=== PATIENT | male | born 1965 ===

== ENCOUNTER 2016-11-19 11:50 | Emergency (ER) | payer SELFPAY ==
[2016-11-19 12:33] VITALS: BP 116/78
--- NOTE | 2016-11-19 13:07 | RAD ---
INDICATION: Left ankle injury. TECHNIQUE: 3 views of the left ankle were obtained. FINDINGS: There is soft tissue swelling present along the anterolateral aspect of the ankle. No acute fracture is seen. There are several small well-defined calcific densities adjacent to the tip of the medial malleolus most consistent with old fracture fragments. IMPRESSION: SOFT TISSUE SWELLING, NO ACUTE FRACTURE IS SEEN.
--- NOTE | 2016-11-19 13:31 | UC ---
Lower Extremity/Ankle HPI - HPI Summary HPI Summary: complaint of left ankle pain that started 2 weeks ago when he stepped into a hole and turned his ankle outward this morning he rolled his ankle outward while walking his dog and heard a loud pop aching pain when he puts weight on his left foot that radiates into his lower leg took some ibuprofen with some relief this morning - History of Current Complaint Chief Complaint: UCLowerExtremity Stated Complaint: ANKLE INJURY Time Seen by Provider: 11/19/16 13:16 Hx Obtained From: Patient Aggravating Factor(s): Ambulation Alleviating Factor(s): Rest, Ice Able to Bear Weight: Yes - Allergies/Home Medications Allergies/Adverse Reactions: Allergies Allergy/AdvReac Type Severity Reaction Status Date / Time No Known Allergies Allergy Verified 11/19/16 12:33 PMH/Surg Hx/FS Hx/Imm Hx Previously Healthy: Yes - Surgical History Surgical History: None - Family History Known Family History: Positive: Diabetes Negative: Cardiac Disease, Hypertension Family History: father - Social History Occupation: Employed Full-time Lives: With Family Alcohol Use: None Substance Use Type: None Smoking Status (MU): Current Every Day Smoker Cessation Counseling: Patient Advised to Stop Review of Systems Constitutional: Negative Skin: Negative Eyes: Negative ENT: Negative Respiratory: Negative Cardiovascular: Negative Gastrointestinal: Negative Genitourinary: Negative Motor: Negative Neurovascular: Negative Musculoskeletal: Other: - left ankle pain Neurological: Negative Psychological: Negative All Other Systems Reviewed And Are Negative: Yes Physical Exam Triage Information Reviewed: Yes Appearance: Well-Appearing, Well-Nourished Vital Signs: Initial Vital Signs Temp 97.8 F 11/19/16 12:29 Pulse 60 11/19/16 12:29 Resp 16 11/19/16 12:29 BP 116/78 11/19/16 12:29 Pulse Ox 100 11/19/16 12:29 Vital Signs Reviewed: Yes Eyes: Positive: Conjunctiva Clear ENT: Positive: Pharynx normal, TMs normal Dental: Positive: Gross Decay/Caries @ Neck: Positive: No Lymphadenopathy Respiratory: Positive: Lungs clear, Normal breath sounds, No respiratory distress, No accessory muscle use Cardiovascular: Positive: RRR, No Murmur, Pulses Normal Abdomen Description: Positive: Nontender, Soft Bowel Sounds: Positive: Present Musculoskeletal: Positive: Other: - LLE-No bony deformities, tenderness and edema lateral side of ankle Full ROM dorsi/plantar flexion, inversion & eversion. Bailey test negative.no step off in achilles tendon Neurological: Positive: Alert Psychological Exam: Normal Skin Exam: Normal Lower Extremity Course/Dx - Course Course Of Treatment: exam completed. x-ray shows no acute fractures. will send to ortho for further evasluation d/t concern about achilles tendon injury - Differential Dx/Diagnosis Differential Diagnosis/HQI/PQRI: Fracture (Closed), Sprain, Strain, Other - achilles tendon injury Provider Diagnoses: left ankle sprain Discharge - Discharge Plan Condition: Stable Disposition: HOME Patient Education Materials: Ankle Sprain (ED), [facility] (ED) Forms: *Work Release Referrals: No Primary Care Phys,[facility] [Primary Care Provider] - [facility] [Outside] Additional Instructions: Please call agricultural systems specialist for an appointment. They will evaluate and determine your treatment. Use crutches as needed until you are seen by orthopedics. Take acetaminophen or ibuprofen to control pain and reduce inflammation. Please review your discharge instructions. If your symptoms worsen call agricultural systems specialist or return to urgent care.
== END 2016-11-19 13:50 | disposition home or self-care (01) ==
LOC: UCEAST 11:50
DX: S93.402A Sprain of unspecified ligament of left ankle, initial encounter (principal); W17.2XXA Fall into hole, initial encounter; Y93.9 Activity, unspecified; Y92.9 Unspecified place or not applicable; Y99.9 Unspecified external cause status; Z72.0 Tobacco use
CPT/HCPCS: 99203; G0463